=== PATIENT | male | born 1975 ===

== ENCOUNTER 2018-07-31 11:08 | Emergency (ER) | payer OTHER ==
[~2018-07-31] VITALS: Ht 170.2 cm; Wt 77.1 kg
[~2018-07-31 11:08] MED LIST: CEPH500; CEPH500 PO; CYCL10 PO; DIPH50 PO; FAMO40 PO; HYDACE5 PO; HYDPAM50 PO; IBUP600 PO; IBUP800 PO; KETO10 PO; MELO7.5; NAPPHEOPSO BOTHEYES; NAPR500 PO; NEOPOLHCSU LEFTEAR; Naprosyn500 MG PO; ONDA4 PO; OXYACE5T PO; PENVK250 PO; PROC10 PO; PROM25 PO; Polytrim Eye Dr10 ML BOTHEYES; RXTRAM50 PO; Robaxin500 MG PO; SULTRIDS PO; TAMS.4ER PO; TRAM50 PO; Ultram50 MG PO; Veetids 500500 MG PO
== END 2018-07-31 13:38 | disposition home or self-care (01) ==
LOC: ER 11:08
DX: M25.512 Pain in left shoulder (principal); F17.210 Nicotine dependence, cigarettes, uncomplicated
CPT/HCPCS: 73030; 99283-25